=== PATIENT | male | born 1985 | race Caucasian/White ===

== ENCOUNTER 2016-10-31 22:45 | Emergency (ER) | payer OTHER, BC ==
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
[~2016-10-31 22:45] MED LIST: FLECTOR1 EACH PO; FLEXERIL10 MG PO
== END 2016-10-31 23:40 | disposition home or self-care (01) ==
LOC: CFTX 22:45
DX: S16.1XXA Strain of muscle, fascia and tendon at neck level, initial encounter (principal); S20.212A Contusion of left front wall of thorax, initial encounter; Z79.899 Other long term (current) drug therapy; F17.210 Nicotine dependence, cigarettes, uncomplicated; V49.40XA Driver injured in collision with unspecified motor vehicles in traffic accident, initial encounter; Y92.488 Other paved roadways as the place of occurrence of the external cause
CPT/HCPCS: 71101; 72040; 96372; 99284; J1885

== ENCOUNTER → 2016-12-13 | Outpatient (CLI) | payer OTHER, BC ==
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
== END | disposition home or self-care (01) ==
LOC: SMRI 13:37
DX: M54.6 Pain in thoracic spine (principal); M51.44 Schmorl's nodes, thoracic region
CPT/HCPCS: 72146